=== PATIENT | male | born 1960 ===

== ENCOUNTER 2019-08-07 08:31 | Day surgery (SDC) | payer BC ==
[~2019-08-07] VITALS: Ht 195.6 cm; Wt 100.6 kg
[~2019-08-07 08:31] MED LIST: POTASSIUM LIQUID PO; TAMS.4ER PO
--- NOTE | 2019-08-07 12:37 | NUR ---
REPORT TO JACK FERGUSON
--- NOTE | 2019-08-07 13:18 | NUR ---
"DAY SURGERY RN | DISCHARGE VSS. A/O. Tolerating PO fluids and food. Denies nausea. Pain med given per order. Discharge instructions and Rx given to patient with family present. Denies further questions. Site remains c/d/i. Taken in wheelchair to front entrance by volunteer, is ride home."
== END 2019-08-07 23:51 | disposition home or self-care (01) ==
LOC: ORSCMMR 08:31 → ORD 09:30 → ORSCMMR 10:30 → ORD 10:30 → ORSCMMR 23:51
PROVIDERS: Surgery
PROC: 0WUF0JZ Supplement Abdominal Wall with Synthetic Substitute, Open Approach (ICD-10-PCS; principal; 2019-08-07 10:30)
DX: K42.9 Umbilical hernia without obstruction or gangrene (principal)
CPT/HCPCS: A9270-GY; C1781; J0690; J1100; J2250; J2405; J2704; J3010; J7120

== ENCOUNTER 2022-11-06 10:46 | Day surgery (SDC) | payer BC ==
[~2022-11-06] VITALS: Ht 193 cm; Wt 95.5 kg
--- NOTE | 2022-11-06 13:06 | NUR ---
11/06/22 1306 Serenity Baeza 20ML NORMAL SALINE USED TO ELEVATE POLYPS
== END 2022-11-06 13:36 | disposition home or self-care (01) ==
LOC: ORSCSDS 10:46
PROVIDERS: Internal Medicine Gastroenterology
PROC: 0DBL8ZX Excision of Transverse Colon, Via Natural or Artificial Opening Endoscopic, Diagnostic (ICD-10-PCS; principal; 2022-11-06 12:15)
PROC: 0DBK8ZX Excision of Ascending Colon, Via Natural or Artificial Opening Endoscopic, Diagnostic (ICD-10-PCS; principal; 2022-11-06 12:15)
PROC: 0DBM8ZX Excision of Descending Colon, Via Natural or Artificial Opening Endoscopic, Diagnostic (ICD-10-PCS; principal; 2022-11-06 12:15)
PROC: 0DBH8ZX Excision of Cecum, Via Natural or Artificial Opening Endoscopic, Diagnostic (ICD-10-PCS; principal; 2022-11-06 12:15)
DX: Z12.11 Encounter for screening for malignant neoplasm of colon (principal); Z86.010 Personal history of colon polyps; D12.0 Benign neoplasm of cecum; D12.3 Benign neoplasm of transverse colon; K63.5 Polyp of colon; K57.30 Diverticulosis of large intestine without perforation or abscess without bleeding; K64.4 Residual hemorrhoidal skin tags
CPT/HCPCS: 88305; J2704; J7120